=== PATIENT | male | born 1960 | race Caucasian/White ===

== ENCOUNTER 2016-12-27 20:39 | Emergency (ER) | payer OTHER ==
[~2016-12-27] VITALS: Ht 182.9 cm; Wt 75.7 kg
[2016-12-27 20:41] VITALS: TEMP 36.5; Ht 182.9 cm; Wt 75.7 kg
[2016-12-27] MEDS ORDERED: ALBUTEROL HFA 8 GM INHALER INH ONE (21:15)
--- NOTE | 2016-12-27 21:23 | EMERGENCY ROOM VISIT NOTE ---
History Report prepared by Armen: Brina Hurley Under the Supervision of: Dr. Lance Lozano M.D. First contact with patient: 21:03 Chief Complaint: COUGH Stated Complaint: COUGH, WHEEZING Nursing Triage Summary: Per patient and , for past couple months patient has had a cough. When he has coughing spells it nelson throughout his chest and throat. History of Present Illness The patient is a 56 year old male who presents to the Emergency Room with complaints of a persistent cough starting about 3 months ago. He reports a small amount of mucous production. He has worsening cough with exposure to cold air. He has a mid-chest pain with coughing. He also complains of wheezing. He currently denies any sore throat, nausea, vomiting, abdominal pain, or any other complaints. He was evaluated by his PCP and given a cough medication without relief. He denies any history of smoking tobacco. He denies history of inhaler use, lung disease, and cardiac disease. He has a history of acid reflux. Source of History: patient Onset: about 3 months ago Position: other (global) Quality: other (cough) Timing: other (persistent) Modifying Factors (Worsening): other (with exposure to cold air) Associated Symptoms: + chest pain, No abdominal pain, No nausea, No sorethroat, No vomiting Review of Systems See HPI for pertinent positives & negatives. A total of 10 systems reviewed and were otherwise negative. Past Medical & Surgical Medical Problems: (1) Acid reflux (2) Hard of hearing Family History Patient reports no known family medical history. Social History Smoking Status: Never Smoker Marital Status: Housing Status: lives with family Current/Historical Medications Scheduled Albuterol Hfa (Ventolin Hfa), 3 PUFFS INH Q6H Allopurinol (Zyloprim), 300 MG PO DAILY Atorvastatin (Atorvastatin Calcium), 20 MG PO DAILY Lisinopril (Zestril), 10 MG PO DAILY Pantoprazole (Protonix), 20 MG PO DAILY Ranitidine (Zantac), 150 MG PO BID Allergies Coded Allergies: Cephalexin (Unverified Allergy, Unknown, rash, 12/27/16) Sulfamethoxazole w/Trimethoprim (Unverified Allergy, Unknown, rash, ) Physical Exam Vital Signs Date Time Temp Pulse Resp B/P Pulse Ox O2 Delivery O2 Flow Rate FiO2 12/27/16 22:12 84 22 111/69 96 Room Air 12/27/16 20:45 94 Room Air 12/27/16 20:41 36.5 88 20 118/71 94 Room Air Physical Exam GENERAL: Patient is in no acute distress. HEENT: No acute trauma, normocephalic atraumatic, mucous membranes moist, no nasal congestion, no scleral icterus. Mild throat erythema, no exudate. NECK: No stridor, no adenopathy, no meningismus, trachea is midline. LUNGS: Clear to auscultation bilaterally, no wheeze, no rhonchi, breath sounds equal. HEART: Without murmurs gallops or rubs, regular rate and rhythm. ABDOMEN: Soft, nontender, bowel sounds positive, no hernias, no peritonitis. EXTREMITIES: No cyanosis or edema, full range of motion of all the joints without pain or difficulty, no signs for acute trauma. NEUROLOGIC: Oriented x 3, no acute motor or sensory deficits, no focal weakness. SKIN: No rash, no jaundice, no diaphoresis. Medical Decision & Procedures ER Provider Diagnostic Interpretation: X-ray results as stated below per interpretation by me and the radiologist: CHEST 2 VIEWS ROUTINE HISTORY: cough COMPARISON: None. FINDINGS: The lungs are clear. Cardiac silhouette is normal in size. No pleural effusions. No pneumothorax. Small nipple shadow overlying the left lung base. Old, healed right sixth rib fracture. IMPRESSION: No acute process. Electronically signed by: Jono Maldonado M.D. 12/27/2016 10:04 PM Dictated Date/Time: 12/27/2016 10:02 PM Medications Administered Medications (Trade) Dose Ordered Sig/Lemuel Route Start Time Stop Time Status Last Admin Dose Admin Albuterol (Ventolin Hfa Inhaler) 3 puffs NOW ONCE INH 12/27/16 21:15 12/27/16 21:16 DC 12/27/16 21:15 3 PUFFS Ranitidine HCl (zANTac TAB) 150 mg NOW STAT PO 12/27/16 22:12 12/27/16 22:13 DC 12/27/16 22:19 150 MG Pantoprazole Sodium (Protonix Tab) 40 mg NOW STAT PO 12/27/16 22:12 12/27/16 22:13 DC 12/27/16 22:19 40 MG ED Course 2102: The patient was evaluated in room A11B. A complete history and physical exam was performed. 2114: Albuterol 3 puffs INH 2211: Protonix Tab 40 mg PO, Ranitidine HCl 150 mg PO 2215: Reevaluated the patient. Discussed results and discharge instructions: He verbalized understanding and agreement. The patient is ready for discharge. Medical Decision Differential diagnosis includes but is not limited to bronchitis/pneumonia, CHF , reflux, bronchospasm. The patient presents with a cough for 3 months. His lungs sounded clear. He was not febrile or toxic. He was not hypoxic. He did have some throat erythema on exam, no evidence for tonsillitis. Chest film did not show pneumonia, mediastinal widening or CHF. The patient was given albuterol via MDI. He was given oral Zantac and oral Protonix. The patient is being discharged on albuterol for possible bronchospasm. He will use Zantac and Protonix in case his symptoms are reflux related. If things are worsening, the patient can return for reassessment. He was told to follow with his doctors office as he may need a referral to pulmonology if his symptoms are not improving. Impression Primary Impression: Cough Scribe Attestation The scribe's documentation has been prepared under my direction and personally reviewed by me in its entirety. I confirm that the note above accurately reflects all work, treatment, procedures, and medical decision making performed by me. Departure Information Dispostion Home / Self-Care Prescriptions Pantoprazole (Protonix) 20 Mg Tab 20 MG PO DAILY, #30 TAB 3 Refills Prov: Lance Lozano M.D. 12/27/16 Ranitidine (Zantac) 150 Mg Tab 150 MG PO BID for 14 Days, #28 TAB Prov: Lance Lozano M.D. 12/27/16 Albuterol Hfa (VENTOLIN HFA) 200 Puffs/43345 Mcg Aers 3 PUFFS INH Q6H, #1 INHALER 2 Refills Prov: Lance Lozano M.D. 12/27/16 Referrals Js Sarabia M.D. (PCP) Forms HOME CARE DOCUMENTATION FORM, IMPORTANT VISIT INFORMATION Patient Instructions My [facility] Additional Instructions albuterol 3 puffs every 4-6 hours zantac 2x per day for 2 weeks protonix daily for 1 month see akbar salcedo for a recheck return if worsening chest film today was normal
[2016-12-27] MEDS ORDERED: LISI-461 PO (22:03)
[2016-12-27] MEDS ORDERED: LPT/20 PO (22:03)
[2016-12-27] MEDS ORDERED: ALLO300T2 PO (22:03)
--- NOTE | 2016-12-27 22:06 | DIAGNOSTIC IMAGING REPORT ---
CHEST 2 VIEWS ROUTINE HISTORY: cough COMPARISON: None. FINDINGS: The lungs are clear. Cardiac silhouette is normal in size. No pleural effusions. No pneumothorax. Small nipple shadow overlying the left lung base. Old, healed right sixth rib fracture. IMPRESSION: No acute process. Electronically signed by: Jono Maldonado M.D. 12/27/2016 10:04 PM Dictated Date/Time: 12/27/2016 10:02 PM
[2016-12-27 22:12] VITALS: BP 111/69; PULSE 84; O2SAT 96
[2016-12-27] MEDS ORDERED: RANITIDINE HCL 150 MG TAB PO STA (22:12)
[2016-12-27] MEDS ORDERED: PANTOprazole SOD 40 MG TAB PO STA (22:12)
[2016-12-27] MEDS ORDERED: VNTHFA/IN INH (22:15)
[2016-12-27] MEDS ORDERED: ZNTT/150 PO (22:15)
[2016-12-27] MEDS ORDERED: PRT/20 PO (22:15)
== END 2016-12-27 22:29 | disposition home or self-care (01) ==
LOC: C.EDB 20:40 → C.EDA 22:29
DX: R05 Cough (principal); K21.9 Gastro-esophageal reflux disease without esophagitis; H91.90 Unspecified hearing loss, unspecified ear; Z88.2 Allergy status to sulfonamides

== ENCOUNTER 2020-07-09 18:24 | Observation (INO) ==
[2020-07-09] MEDS ORDERED: SODIUM CHLORIDE 0.9% 1000ML 1,000 ML IV ONE ×2 (19:01→19:03)
[2020-07-09] MEDS ORDERED: PIPERACILLIN/TAZOBACTAM 4.5 GM/120 ML BAG IV ONE (19:13)
[2020-07-09] MEDS ORDERED: SODIUM CHLORIDE 0.9% 1000ML 500 ML IV ONE (19:13)
[2020-07-09] MEDS ORDERED: ACETAMINOPHEN 1,000 MG/100 ML VIAL IV STA (19:13)
[2020-07-09] MEDS ORDERED: PIPERACILL/TAZOBAC CONSULT ACTIVE PRN (19:13)
[2020-07-09] MEDS ORDERED: DAPTOMYCIN CONSULT ACTIVE PRN (19:13)
[2020-07-09] MEDS ORDERED: SODIUM CHLORIDE 0.9% 1000ML 250 ML IV ONE (19:13)
[2020-07-09] MEDS ORDERED: DAPTOmycin 500 MG in SYRINGE 0 ML IV ONE (19:13)
[2020-07-09 19:50] LABS: Basophils # (auto) 0.01 K/uL (0-0.2); Basophils % (auto) 0.1 %; Eosinophils % (auto) 0.9 %; Hematocrit (blood only) 38.1 % (42-52); Hemoglobin 13.2 g/dL (14.0-18.0); Immature Granulocytes # (auto) 0.03 K/uL (0.00-0.02); Immature Granulocytes % (auto) 0.3 %; Lymphocytes # (auto) 2.01 K/uL (1.2-3.4); Mean Corpuscular Hemoglobin 31.4 pg (25-34); Mean Corpuscular Hgb Conc 34.6 g/dL (32-36); Mean Corpuscular Volume 90.5 fL (80-100); Mean Platelet Volume 10.1 fL (7.4-10.4); Monocytes # (auto) 0.92 K/uL (0.11-0.59); Monocytes % (auto) 8.7 %; Platelet Count 375 K/uL (130-400); RDW Coefficient of Variation 12.2 % (11.5-14.5); RDW Standard Deviation 40.4 fL (36.4-46.3); Red Blood Count 4.21 M/uL (4.7-6.1); White Blood Count 10.57 K/uL (4.8-10.8)
[2020-07-09 19:59] LABS: INR 1.1 (0.9-1.1); Partial Thromboplastin Ratio 0.9; Partial Thromboplastin Time 25.6 Seconds (21.0-31.0); Prothrombin Time 11.4 Seconds (9.0-12.0)
[2020-07-09 20:07] LABS: Alanine Aminotransferase 27 U/L (12-78); Albumin Level 3.2 gm/dl (3.4-5.0); Aspartate Aminotransferase 14 U/L (15-37); BUN Creatinine Ratio 13.6 (10-20); Blood Urea Nitrogen 14 mg/dl (7-18); Calcium 9.7 mg/dl (8.5-10.1); Carbon Dioxide 27 mmol/L (21-32); Chloride 100 mmol/L (98-107); Creatinine Clr Calc Pharmacy 83.4 ml/min; Est GFR (African American) 89.2; Glucose 110 mg/dl (70-99); Magnesium 2.1 mg/dl (1.8-2.4); Potassium 3.8 mmol/L (3.5-5.1); Sodium 135 mmol/L (136-145)
[2020-07-09 20:11] LABS: Albumin Globulin Ratio 0.6 (0.9-2); Alkaline Phosphatase 68 U/L (45-117); Bilirubin,Total 0.9 mg/dl (0.2-1); C Reactive Protein 8.04 mg/dl (0-0.29); Creatine Kinase 45 U/L (39-308); Creatine Kinase MB < 1.0 ng/ml (0.5-3.6); Ferritin 1155.3 ng/ml (8-388); Total Protein 8.2 gm/dl (6.4-8.2); Troponin I < 0.015 ng/ml (0-0.045)
--- NOTE | 2020-07-09 20:57 | XRay Report ---
XR chest 1V portable HISTORY: SEPSIS COMPARISON: Chest 12/27/2016. FINDINGS: The lungs are clear. Cardiac silhouette is normal in size. No pleural effusions. No pneumot horax. IMPRESSION: No acute process. ACT 112: Negative or not required by law. Electronically signed by: Jono Maldonado M.D. 07/09/2020 8:56 PM
--- NOTE | 2020-07-09 21:55 | History & Physical Report ---
Date of Service July 09, 2020 Assessment & Plan (1) Cellulitis of both lower extremities: Continue daptomycin and Zosyn IV begun in the ED. Present on Admission?: Yes (2) Gouty arthritis of both ankles: Hold allopurinol during acute flare. Colchicine 0.6 mg p.o. twice daily Methylprednisolone 40 mg IV every 12 hours x2 doses, then convert to prednisone, due to severity of process. Present on Admission?: Yes (3) Hypertension: Hold losartan. Present on Admission?: Yes (4) Hyperlipidemia: Continue rosuvastatin. Present on Admission?: Yes (5) Gout: Hold allopurinol during acute flare Present on Admission?: Yes History of Present Illness Chief Complaint: The patient presented to the emergency department with complaint of bilateral foot, ankle and lower leg discomfort worsening over the past week Primary Care Provider: Js Sarabia The patient is a 60-year-old male with a past medical history including gout, hypertension and hyperlipidemia, who presents with the symptoms as noted above. He denies any recent travels or sick exposures, including COVID. He denies any recent trauma. He denies any recent gout flareups. He does report eating shrimp last evening, and is not restrictive related to protein intake including meats. Allergies Allergy/AdvReac Type Severity Reaction Status Date / Time Bactrim Allergy Unknown rash Unverified 12/27/16 22:01 cephalexin Allergy Unknown rash Unverified 07/09/20 21:11 sulfamethoxazole Allergy Unknown rash Unverified 07/09/20 21:11 trimethoprim Allergy Unknown rash Unverified 07/09/20 21:11 Home Medications Home Medications Medication Instructions Recorded Confirmed Type allopurinol 300 mg PO DAILY 07/09/20 07/09/20 History cholecalciferol (vitamin D3) 25 mcg PO DAILY 07/09/20 07/09/20 History [Vitamin D3] losartan 100 mg PO DAILY 07/09/20 07/09/20 History rosuvastatin 10 mg PO DAILY 07/09/20 07/09/20 History Past Med/Surg History Medical History (Updated 07/10/20 @ 02:52 by Thanh Weiner MD) Gout Hyperlipidemia Hypertension Social History Smoking Status: Never smoker Cigarettes Per Day: former chews; Do You Dip or Chew Tobacco: No; Hx Alcohol Use: Yes Alcohol type: beer Hx Substance Use: No Preferred Language: [place] Communication Ability: Effective Lead Designer Required: No Beliefs That Will Affect Care: None Current Living Situation: Spouse Feels Safe at Home: Yes Assistive Devices: Hearing Aid - Bilateral Review of Systems Review of Systems: The patient denies chest pain, palpitations, shortness of breath, dyspnea on exertion, cough, sore throat, fevers, chills, sweats, nausea, vomiting, diarrhea , constipation, abdominal pain, pelvic pain, blood in urine or stool, dysuria, urinary frequency or urgency, lightheadedness, dizziness, headache, memory loss, loss of consciousness, abnormal bruising or bleeding, focal or generalized weakness, numbness or tingling in arms, generalized arthralgias or myalgias, back or neck pain, or night sweats. The review of systems is otherwise negative other than for that already noted above, and at least 10 systems have been reviewed. Physical Exam Physical Exam: The patient is awake, alert and oriented 3, well developed and well nourished, normocephalic and atraumatic, lying in bed and in no acute distress. HEENT--PERRL, EOMI, mucous membranes and oropharynx dry. Neck--supple. No JVD. No bruits. Thyroid normal, trachea midline, no adenopathy. Heart--normal S1 and S2. No murmurs, rubs or gallops. Lungs--clear bilaterally, no respiratory distress, no accessory muscle use. Abdomen--normal bowel sounds and soft. Nontender. Nondistended, no hernias or masses, no organomegaly. Extremities/Dermatologic--bilateral edema and bone swelling of the foot and ankle, left greater than right. Mild erythema and warmth left greater than right Neurologic--cranial nerves II through XII grossly intact. Rheumatologic--normal range of motion except for feet and ankles bilaterally Psychiatric--normal affect. Results & Data Results & Data ([facility]) Vital Signs (Past 12 Hours) Vital Signs Temp Pulse Pulse Resp BP BP Pulse Ox 07/09/20 20:38 98.8 F 69 27 H 116/67 98 07/09/20 19:41 75 11 L 132/74 99 07/09/20 18:50 100.4 F H 94 H 20 99/66 L 98 Laboratory Results Laboratory Results WBC 10.57 K/uL (4.8-10.8) 07/09/20 19:33 RBC 4.21 M/uL (4.7-6.1) L 07/09/20 19:33 Hgb 13.2 g/dL (14.0-18.0) L 07/09/20 19: Hct 38.1 % (42-52) L 07/09/20 19:33 MCV 90.5 fL (80-100) 07/09/20 19: MCH 31.4 pg (25-34) 07/09/20 19: MCHC 34.6 g/dL (32-36) 07/09/20 19:33 RDW Std Deviation 40.4 fL (36.4-46.3) 07/09/20: RDW Coeff of Yi 12.2 % (11.5-14.5) 07/09/20: Plt Count 375 K/uL (130-400) 07/09/20: MPV 10.1 fL (7.4-10.4) 07/09/20 19: Immature Gran % (Auto) 0.3 % 07/09/20 19:33 Neut % (Auto) 71.0 % 07/09/20 19:33 Lymph % (Auto) 19.0 % 07/09/20 19:33 [place] % (Auto) 8.7 % 07/09/20 19: Eos % (Auto) 0.9 % 07/09/20: Baso % (Auto) 0.1 % 07/09/20 19: Neut # (Auto) 7.50 K/uL (1.4-6.5) H 07/09/20 19: Lymph # (Auto) 2.01 K/uL (1.2-3.4) 07/09/20 19:33 [place] # (Auto) 0.92 K/uL (0.11-0.59) H 07/09/20 19: Eos # (Auto) 0.10 K/uL (0-0.5) 07/09/20 19: Baso # (Auto) 0.01 K/uL (0-0.2) 07/09/20 19: Immature Gran # (Auto) 0.03 K/uL (0.00-0.02) H 07/09/20 19:33 ESR 56 mm/hr (0-14) H 07/09/20 19:33 PT 11.4 Seconds (9.0-12.0) 07/09/20 19:33 INR 1.1 (0.9-1.1) 07/09/20 19:33 APTT 25.6 Seconds (21.0-31.0) 07/09/20 19:33 PTT Ratio 0.9 07/09/20 19:33 Sodium 135 mmol/L (136-145) L 07/09/20 19:33 Potassium 3.8 mmol/L (3.5-5.1) 07/09/20 19:33 Chloride 100 mmol/L (98-107) 07/09/20 19:33 Carbon Dioxide 27 mmol/L (21-32) 07/09/20 19:33 Anion Gap 7.0 (3-11) 07/09/20 19:33 BUN 14 mg/dl (7-18) 07/09/20 19:33 Creatinine 1.06 mg/dl (0.6-1.4) 07/09/20 19:33 Est Cr Clr Drug Dosing 83.4 ml/min 07/09/20 19:33 Est GFR ( Amer) 89.2 07/09/20 19:33 Est GFR (Non-Af Amer) 77.0 07/09/20 19:33 BUN/Creatinine Ratio 13.6 (10-20) 07/09/20 19:33 Glucose 110 mg/dl (70-99) H 07/09/20 19:33 Lactate 1.6 mmol/L (0.4-2.0) 07/09/20 19:33 Uric Acid 2.1 mg/dl (2.6-7.2) L 07/09/20 19:33 Calcium 9.7 mg/dl (8.5-10.1) 07/09/20 19:33 Magnesium 2.1 mg/dl (1.8-2.4) 07/09/20 19:33 Ferritin 1155.3 ng/ml (8-388) H 07/09/20 19:33 Total Bilirubin 0.9 mg/dl (0.2-1) 07/09/20 19:33 AST 14 U/L (15-37) L 07/09/20 19:33 ALT 27 U/L (12-78) 07/09/20 19:33 Alkaline Phosphatase 68 U/L (45-117) 07/09/20 19:33 Lactate Dehydrogenase 190 U/L (87-241) 07/09/20 19:33 Total Creatine Kinase 45 U/L (39-308) 07/09/20 19:33 CK-MB (CK-2) < 1.0 ng/ml (0.5-3.6) 07/09/20 19:33 CK/CKMB % Calc TNP 07/09/20 19: Troponin I < 0.015 ng/ml (0-0.045) 07/09/20 19:33 C-Reactive Protein 8.04 mg/dl (0-0.29) H 07/09/20 19:33 Total Protein 8.2 gm/dl (6.4-8.2) 07/09/20 19: Albumin 3.2 gm/dl (3.4-5.0) L 07/09/20 19:33 Globulin 5.0 gm/dl (2.5-4.0) H 07/09/20 19: Albumin/Globulin Ratio 0.6 (0.9-2) L 07/09/20 19:33 Procalcitonin 0.07 ng/ml (0-0.5) 07/09/20 19:33 Urine Color Yellow 07/09/20 21:33 Urine Appearance Clear (Clear) 07/09/20 21:33 Urine pH 6.0 (4.5-7.5) 07/09/20 21:33 Ur Specific [place] 1.014 (1.000-1.030) 07/09/20 21:33 Urine Protein Negative (Negative) 07/09/20 21:33 Urine Glucose (UA) Negative (Negative) 07/09/20 21:33 Urine Ketones Negative (Negative) 07/09/20 21:33 Urine Blood Negative (Negative) 07/09/20 21: Urine Nitrite Negative (Negative) 07/09/20 21: Urine Bilirubin Negative (Negative) 07/09/20 21:33 Urine Urobilinogen Negative (Negative) 07/09/20 21:33 Ur Leukocyte Esterase Negative (Negative) 07/09/20 21:33 COVID-19 Eval Order Covid19 Done at [facility] 07/09/20 19:10 COVID-19 PCR NEGATIVE (Negative) 07/09/20 19:10 Diagnostic Findings [place], [place] [phone] XRay Report Patient: IVANA PUGHAdmit Date: 07/09/20 MR#: [id number]: [address] Acct ID:[id number]: Date: 2City Zip: [place] [address] Age: 60Location: ED Sex: MRoom/Bed: Att Phy:Diagnosis: ANKLE PAIN Erika Phy: Js Sarabia M.D.Service Date: 07/09/20 Fam Phy:Interpreting Phy: Jono Maldonado MD Admit Phy: Ordering Phy: Akash Gasca MD cc: ~ XR chest 1V portable HISTORY: SEPSIS COMPARISON: Chest 12/27/2016. FINDINGS: The lungs are clear. Cardiac silhouette is normal in size. No pleural effusions. No pneumothorax. IMPRESSION: No acute process. ACT 112: Negative or not required by law. Electronically signed by: Jono Maldonado M.D. 07/09/2020 8:56 PM Dictated: 07/09/202054 Transcribed: 07/09/202054 Code Status & VTE Plan Code Status Full code VTE Prophylaxis Plan VTE Prophylaxis will be ordered: Yes PG Care Time/CCT Total # of Minutes Spent Total Time Spent with Patient: Total time spent is greater than 50% in coordination of care (as documented) at patient's floor/unit and/or counseling patient: Coding Level of Care Code 86921 OBS Care - Level 3 Diagnoses Cellulitis of both lower extremities L03.115; L03.116 Gouty arthritis of both ankles M10.9 Hypertension I10 Hyperlipidemia E78.5 Gout M10.9
[2020-07-09 21:57] LABS: Appearance Urine Clear (Clear); Bilirubin Urine Negative (Negative); Blood Urine Negative (Negative); Color Urine Yellow; Glucose Urine UA Negative (Negative); Ketones Urine Negative (Negative); Leukocyte Esterase Urine Negative (Negative); Nitrite Urine Negative (Negative); Protein Urine Negative (Negative); Specific Gravity Urine 1.014 (1.000-1.030); Urobilinogen Urine Negative (Negative)
[2020-07-10] MEDS ORDERED: DAPTOMYCIN CONSULT ACTIVE PRN (00:04)
[2020-07-10] MEDS ORDERED: ALUMINUM/MAGNESIUM SUSP 30 ML UDC PO PRN (00:04)
[2020-07-10] MEDS ORDERED: MAGNESIUM HYDROXIDE SUSP 30 ML UDC PO PRN (00:04)
[2020-07-10] MEDS ORDERED: ONDANSETRON INJ 2 MG/ML 2 ML VIAL IV PRN (00:04)
[2020-07-10] MEDS ORDERED: ACETAMINOPHEN 325 MG TAB PO PRN (00:04)
[2020-07-10 00:47] LABS: Uric Acid 2.1 mg/dl (2.6-7.2)
[2020-07-10] MEDS: NSS + 20MEQ KCL 20 MEQ/1,000 ML BAG IV SCH ×3 (00:59→20:30)
[2020-07-10] MEDS: PIPERACILLIN/TAZOBACTAM 3.375 GM in DEXTROSE 5% 100 ML IV SCH ×3 (01:08→16:56)
[2020-07-10] MEDS: LEVOFLOXACIN/D5W 500 MG/100 ML BAG IV SCH (01:10)
[2020-07-10] MEDS ORDERED: COLCHICINE 0.6 MG TAB PO ONE (02:53)
--- NOTE | 2020-07-10 03:32 | Emergency Department Note ---
History of Present Illness General Chief complaint: Illness Stated complaint: ANKLE PAIN Time Seen by Provider: 07/09/20 19:00 Source: patient, RN notes reviewed and old records reviewed Mode of arrival: ambulatory Limitations: no limitations History of Present Illness Provider complaint: ankle pain Onset (ago): week(s) 1 Location: lower extremity, left and right Radiation: non-radiation Severity: moderate Pain Consistency: + intermittent Maximum Pain Intensity: 6 Current Pain Intensity: 6 Quality: + aching Relieved By: + immobilization Exacerbated By: + movement Associated symptoms: + cough and + fever/chills; no chest pain, no headaches, no nausea/vomiting and no shortness of breath Treatments prior to arrival: none This is a 60-year-old male who presents emergency department complaining of ankle pain. The patient has cellulitis. He reports he has been having pain bilaterally in his feet since at least Monday. He arrives to the emergency department febrile tachycardic. He reports he is already had [facility] test which was negative. He has not taken anything for his fever. He describes the pain as a burning sensation. He reports movement makes the pain worse however immobilization makes the pain better. Home Medications Home Medications Medication Instructions Recorded Confirmed Type allopurinol 300 mg PO DAILY 07/09/20 07/09/20 History cholecalciferol (vitamin D3) 25 mcg PO DAILY 07/09/20 07/09/20 History [Vitamin D3] losartan 100 mg PO DAILY 07/09/20 07/09/20 History rosuvastatin 10 mg PO DAILY 07/09/20 07/09/20 History Allergies Allergy/AdvReac Type Severity Reaction Status Date / Time Bactrim Allergy Unknown rash Unverified 12/27/16 22:01 cephalexin Allergy Unknown rash Unverified 07/09/20 21:11 sulfamethoxazole Allergy Unknown rash Unverified 07/09/20 21:11 trimethoprim Allergy Unknown rash Unverified 07/09/20 21:11 Past Med/Surg History Medical History Gout Hyperlipidemia Hypertension Social History Smoking Status: Never smoker Cigarettes Per Day: former chews; Do You Dip or Chew Tobacco: No; Hx Alcohol Use: Yes Alcohol type: beer Hx Substance Use: No Preferred Language: Cambodian Communication Ability: Effective Drive [employer] Rep[employer]r Required: No Beliefs That Will Affect Care: None Current Living Situation: Spouse Feels Safe at Home: Yes Assistive Devices: Hearing Aid - Bilateral Review of Systems A total of 10 systems reviewed and were otherwise negative Physical Exam Vital Signs Vital Signs - 24 hr 07/09/20 18:50 07/09/20 19:41 07/09/20 20:38 Temperature 38.0 C H 37.1 C Temperature Source Oral Oral Pulse Rate 94 H 75 Pulse Rate [Left Finger] 69 Pulse Rate from SpO2 Sensor 75 Respiratory Rate 20 11 L 27 H Respiratory Effort / Characteristics Non-Labored Spontaneous Respiratory Depth Normal Respiratory Pattern Regular Blood Pressure 99/66 L 132/74 Blood Pressure [Right Arm] 116/67 Blood Pressure Mean 77 95 Blood Pressure Mean [Right Arm] 83 Pulse Oximetry 98 99 98 Oxygen Delivery Method Room Air Sepsis Recent Fever Within 48 Hours No Sepsis New/Unexplained Change in Mental Status N/A Sepsis Action Taken by Nursing No Action Required VITAL SIGNS - Vital signs and nursing notes were reviewed. GENERAL - 60-year-old male appearing stated age who is in no acute distress. Communicates well with provider and answers questions appropriately. SKIN - Without rashes. HEAD - NC/AT. EYES - PERRL with EOMI bilaterally. Sclera anicteric. Palpebral conjunctiva pink and moist with no injection noted. EARS - No deformities of external structures noted on gross examination bilaterally. No pain elicited with palpation of the tragus bilaterally. External auditory canals without discharge or otorrhea. Tympanic membranes pearly oconnor without retraction or bulging. No fluid or purulent material visualized behind the TM. Handle of malleus, umbo, cone of light, pars tensa/flaccid all easily visualized. NOSE - Midline and without cyanosis. No epistaxis or purulent drainage noted. Septum midline without deviation or septal hematoma noted. MOUTH/OROPHARYNX - Without perioral cyanosis. Buccal mucosa pink and moist and without leukoplakia. Tongue midline with equal elevation of palate bilaterally. No tonsillar hypertrophy, erythema, or exudates noted. dentition noted. NECK - Neck with FROM. Supple to palpation. lymphadenopathy noted. No nuchal rigidity. LUNGS - Chest wall symmetric without accessory muscle use, intercostals retractions, or central cyanosis. Normal vesicular breath sounds CTA B/L. No wheezes, rales, or rhonchi appreciated. CARDIAC - RRR with S1/S2. No murmur, rubs, or gallops appreciated. ABDOMEN - Abdominal contour without pulsations or visible masses. BS normoactive all four quadrants. No tenderness, palpable masses, hepatosplenomegaly, or ascites noted. EXTREMITIES - No clubbing or peripheral cyanosis. No pretibial edema present. +3/5 radial, posterior tibial, and dorsalis pedis pulses palpated throughout. +5/5 strength noted in UE/LE bilaterally. NEUROLOGIC - Cranial nerves II through XII grossly intact. Sensory intact to light touch throughout. Patellar reflexes +2/4. PSYCH - A&Ox3 and cooperates fully with examiner. Pt is very pleasant and interacts well with examiner. Course Administered Medications Potassium Chloride/Sodium Chloride (Normal Saline W/20 Meq Kcl) 20 meq in 1,000 mls @ 100 mls/hr IV .Q10H [facility] Stop: 08/09/20 00:03 Last Admin: 07/10/20 00:59 Dose: 100 mls/hr Documented by: [id number] Levofloxacin/Dextrose (Levaquin/D5w) 500 mg in 100 mls @ 100 mls/hr IV Q24H [facility] Stop: 07/17/20 00:59 Last Infusion: 07/10/20 02:14 Dose: 0 mls/hr Documented by: [id number] Admin: 07/10/20 01:10 Dose: 100 mls/hr Documented by: [id number] Piperacillin Sod/Tazobactam (Sod 3.375 gm/ Dextrose) 115 mls @ 28.75 mls/hr IV Q8H [facility]; Protocol Stop: 07/17/20 00:59 Last Admin: 07/10/20 01:08 Dose: 28.8 mls/hr Documented by: [id number] Discontinued Medications Sodium Chloride (Nss 1000ml) 1,000 mls @ 999 mls/hr IV .Q1H1M ONE Stop: 07/09/20 20:01 Last Infusion: 07/09/20 21:00 Dose: 0 mls/hr Documented by: [id number] Admin: 07/09/20 19:43 Dose: 999 mls/hr Documented by: [id number] Sodium Chloride (Nss 1000ml) 1,000 mls @ 999 mls/hr IV .Q1H1M ONE Stop: 07/09/20 20:03 Last Infusion: 07/09/20 21:00 Dose: 0 mls/hr Documented by: [id number] Admin: 07/09/20 19:43 Dose: 999 mls/hr Documented by: [id number] Sodium Chloride (Nss 1000ml) 250 mls @ 999 mls/hr IV .Q16M ONE Stop: 07/09/20 19:28 Last Infusion: 07/09/20 21:00 Dose: 0 mls/hr Documented by: [id number] Admin: 07/09/20 20:36 Dose: 999 mls/hr Documented by: [id number] Sodium Chloride (Nss 1000ml) 500 mls @ 999 mls/hr IV .Q31M ONE Stop: 07/09/20 19:43 Last Infusion: 07/09/20 20:30 Dose: 0 mls/hr Documented by: [id number] Admin: 07/09/20 19:56 Dose: 999 mls/hr Documented by: [id number] Piperacillin Sod/Tazobactam Sod (Zosyn) 4.5 gm in 120 mls @ 240 mls/hr IV NOW ONE Stop: 07/09/20 19:42 Last Infusion: 07/09/20 20:15 Dose: 0 mls/hr Documented by: [id number] Admin: 07/09/20 19:43 Dose: 240 mls/hr Documented by: [id number] Daptomycin 500 mg/ Syringe 10 mls @ 5 mls/min IV NOW ONE; Protocol Stop: 07/09/20 19:14 Last Admin: 07/09/20 20:36 Dose: 5 mls/min Documented by: [id number] Acetaminophen (Ofirmev) 1,000 mg in 100 mls @ 400 mls/hr IV NOW STA Stop: 07/09/20 19:27 Last Infusion: 07/09/20 20:00 Dose: 0 mls/hr Documented by: [id number] Admin: 07/09/20 19:43 Dose: 400 mls/hr Documented by: [id number] Critical Care Time I have personally spent greater than 30 minutes of critical care time in the direct management of this patient. This includes bedside care, interpretation of diagnostic studies, and testing, discussion with consultants, patient, and family members, and other required patient management activities. This 30 minutes is in excess of all separately billable procedures. Medical Decision Making Differential Diagnosis Viral syndrome, otitis, pharyngitis, pneumonia, influenza, meningitis, urinary tract infection, sepsis, bacteremia, as well as other pathologies. Medical Records Attestation: I reviewed the patient's medical records. Home Medications Current Medication List: was personally reviewed by me Laboratory Data Attestation: I reviewed the patient's lab results. Result diagrams: 07/09/20 19:33 07/09/20 19:33 Lab Results 07/09/20 07/09/20 07/09/20 Range/Units 19:10 19:10 19:33 WBC 10.57 (4.8-10.8) K/uL RBC 4.21 L (4.7-6.1) M/uL Hgb 13.2 L (14.0-18.0) g/dL Hct 38.1 L (42-52) % MCV 90.5 (80-100) fL MCH 31.4 (25-34) pg MCHC 34.6 (32-36) g/dL RDW Std Deviation 40.4 (36.4-46.3) fL RDW Coeff of Yi 12.2 (11.5-14.5) % Plt Count 375 (130-400) K/uL MPV 10.1 (7.4-10.4) fL Immature Gran % (Auto) 0.3 % Neut % (Auto) 71.0 % Lymph % (Auto) 19.0 % [place] % (Auto) 8.7 % Eos % (Auto) 0.9 % Baso % (Auto) 0.1 % Neut # (Auto) 7.50 H (1.4-6.5) K/uL Lymph # (Auto) 2.01 (1.2-3.4) K/uL [place] # (Auto) 0.92 H (0.11-0.59) K/uL Eos # (Auto) 0.10 (0-0.5) K/uL Baso # (Auto) 0.01 (0-0.2) K/uL Immature Gran # (Auto) 0.03 H (0.00-0.02) K/uL ESR (0-14) mm/hr PT (9.0-12.0) Seconds INR (0.9-1.1) APTT (21.0-31.0) Seconds PTT Ratio Sodium (136-145) mmol/L Potassium (3.5-5.1) mmol/L Chloride (98-107) mmol/L Carbon Dioxide (21-32) mmol/L Anion Gap (3-11) BUN (7-18) mg/dl Creatinine (0.6-1.4) mg/dl Est Cr Clr Drug Dosing ml/min Est GFR ( Amer) Est GFR (Non-Af Amer) BUN/Creatinine Ratio (10-20) Glucose (70-99) mg/dl Lactate (0.4-2.0) mmol/L Uric Acid (2.6-7.2) mg/dl Calcium (8.5-10.1) mg/dl Magnesium (1.8-2.4) mg/dl Ferritin (8-388) ng/ml Total Bilirubin (0.2-1) mg/dl AST (15-37) U/L ALT (12-78) U/L Alkaline Phosphatase (45-117) U/L Lactate Dehydrogenase (87-241) U/L Total Creatine Kinase (39-308) U/L CK-MB (CK-2) (0.5-3.6) ng/ml CK/CKMB % Calc Troponin I (0-0.045) ng/ml C-Reactive Protein (0-0.29) mg/dl Total Protein (6.4-8.2) gm/dl Albumin (3.4-5.0) gm/dl Globulin (2.5-4.0) gm/dl Albumin/Globulin Ratio (0.9-2) Procalcitonin (0-0.5) ng/ml Urine Color Urine Appearance (Clear) Urine pH (4.5-7.5) Ur Specific [place] (1.000-1.030) Urine Protein (Negative) Urine Glucose (UA) (Negative) Urine Ketones (Negative) Urine Blood (Negative) Urine Nitrite (Negative) Urine Bilirubin (Negative) Urine Urobilinogen (Negative) Ur Leukocyte Esterase (Negative) COVID-19 Eval Order Covid19 Done at [facility] COVID-19 PCR NEGATIVE (Negative) 07/09/20 07/09/20 07/09/20 Range/Units 19:33 19:33 19:33 WBC (4.8-10.8) K/uL RBC (4.7-6.1) M/uL Hgb (14.0-18.0) g/dL Hct (42-52) % MCV (80-100) fL MCH (25-34) pg MCHC (32-36) g/dL RDW Std Deviation (36.4-46.3) fL RDW Coeff of Yi (11.5-14.5) % Plt Count (130-400) K/uL MPV (7.4-10.4) fL Immature Gran % (Auto) % Neut % (Auto) % Lymph % (Auto) % [place] % (Auto) % Eos % (Auto) % Baso % (Auto) % Neut # (Auto) (1.4-6.5) K/uL Lymph # (Auto) (1.2-3.4) K/uL [place] # (Auto) (0.11-0.59) K/uL Eos # (Auto) (0-0.5) K/uL Baso # (Auto) (0-0.2) K/uL Immature Gran # (Auto) (0.00-0.02) K/uL ESR 56 H (0-14) mm/hr PT 11.4 (9.0-12.0) Seconds INR 1.1 (0.9-1.1) APTT 25.6 (21.0-31.0) Seconds PTT Ratio 0.9 Sodium 135 L (136-145) mmol/L Potassium 3.8 (3.5-5.1) mmol/L Chloride 100 (98-107) mmol/L Carbon Dioxide 27 (21-32) mmol/L Anion Gap 7.0 (3-11) BUN 14 (7-18) mg/dl Creatinine 1.06 (0.6-1.4) mg/dl Est Cr Clr Drug Dosing 83.4 ml/min Est GFR ( Amer) 89.2 Est GFR (Non-Af Amer) 77.0 BUN/Creatinine Ratio 13.6 (10-20) Glucose 110 H (70-99) mg/dl Lactate (0.4-2.0) mmol/L Uric Acid 2.1 L (2.6-7.2) mg/dl Calcium 9.7 (8.5-10.1) mg/dl Magnesium 2.1 (1.8-2.4) mg/dl Ferritin 1155.3 H (8-388) ng/ml Total Bilirubin 0.9 (0.2-1) mg/dl AST 14 L (15-37) U/L ALT 27 (12-78) U/L Alkaline Phosphatase 68 (45-117) U/L Lactate Dehydrogenase (87-241) U/L Total Creatine Kinase 45 (39-308) U/L CK-MB (CK-2) < 1.0 (0.5-3.6) ng/ml CK/CKMB % Calc TNP Troponin I < 0.015 (0-0.045) ng/ml C-Reactive Protein 8.04 H (0-0.29) mg/dl Total Protein 8.2 (6.4-8.2) gm/dl Albumin 3.2 L (3.4-5.0) gm/dl Globulin 5.0 H (2.5-4.0) gm/dl Albumin/Globulin Ratio 0.6 L (0.9-2) Procalcitonin (0-0.5) ng/ml Urine Color Urine Appearance (Clear) Urine pH (4.5-7.5) Ur Specific [place] (1.000-1.030) Urine Protein (Negative) Urine Glucose (UA) (Negative) Urine Ketones (Negative) Urine Blood (Negative) Urine Nitrite (Negative) Urine Bilirubin (Negative) Urine Urobilinogen (Negative) Ur Leukocyte Esterase (Negative) COVID-19 Eval Order COVID-19 PCR (Negative) 07/09/20 07/09/20 07/09/20 Range/Units 19:33 19:33 19:33 WBC (4.8-10.8) K/uL RBC (4.7-6.1) M/uL Hgb (14.0-18.0) g/dL Hct (42-52) % MCV (80-100) fL MCH (25-34) pg MCHC (32-36) g/dL RDW Std Deviation (36.4-46.3) fL RDW Coeff of Yi (11.5-14.5) % Plt Count (130-400) K/uL MPV (7.4-10.4) fL Immature Gran % (Auto) % Neut % (Auto) % Lymph % (Auto) % [place] % (Auto) % Eos % (Auto) % Baso % (Auto) % Neut # (Auto) (1.4-6.5) K/uL Lymph # (Auto) (1.2-3.4) K/uL [place] # (Auto) (0.11-0.59) K/uL Eos # (Auto) (0-0.5) K/uL Baso # (Auto) (0-0.2) K/uL Immature Gran # (Auto) (0.00-0.02) K/uL ESR (0-14) mm/hr PT (9.0-12.0) Seconds INR (0.9-1.1) APTT (21.0-31.0) Seconds PTT Ratio Sodium (136-145) mmol/L Potassium (3.5-5.1) mmol/L Chloride (98-107) mmol/L Carbon Dioxide (21-32) mmol/L Anion Gap (3-11) BUN (7-18) mg/dl Creatinine (0.6-1.4) mg/dl Est Cr Clr Drug Dosing ml/min Est GFR ( Amer) Est GFR (Non-Af Amer) BUN/Creatinine Ratio (10-20) Glucose (70-99) mg/dl Lactate 1.6 (0.4-2.0) mmol/L Uric Acid (2.6-7.2) mg/dl Calcium (8.5-10.1) mg/dl Magnesium (1.8-2.4) mg/dl Ferritin (8-388) ng/ml Total Bilirubin (0.2-1) mg/dl AST (15-37) U/L ALT (12-78) U/L Alkaline Phosphatase (45-117) U/L Lactate Dehydrogenase 190 (87-241) U/L Total Creatine Kinase (39-308) U/L CK-MB (CK-2) (0.5-3.6) ng/ml CK/CKMB % Calc Troponin I (0-0.045) ng/ml C-Reactive Protein (0-0.29) mg/dl Total Protein (6.4-8.2) gm/dl Albumin (3.4-5.0) gm/dl Globulin (2.5-4.0) gm/dl Albumin/Globulin Ratio (0.9-2) Procalcitonin 0.07 (0-0.5) ng/ml Urine Color Urine Appearance (Clear) Urine pH (4.5-7.5) Ur Specific [place] (1.000-1.030) Urine Protein (Negative) Urine Glucose (UA) (Negative) Urine Ketones (Negative) Urine Blood (Negative) Urine Nitrite (Negative) Urine Bilirubin (Negative) Urine Urobilinogen (Negative) Ur Leukocyte Esterase (Negative) COVID-19 Eval Order COVID-19 PCR (Negative) 07/09/20 Range/Units 21:33 WBC (4.8-10.8) K/uL RBC (4.7-6.1) M/uL Hgb (14.0-18.0) g/dL Hct (42-52) % MCV (80-100) fL MCH (25-34) pg MCHC (32-36) g/dL RDW Std Deviation (36.4-46.3) fL RDW Coeff of Yi (11.5-14.5) % Plt Count (130-400) K/uL MPV (7.4-10.4) fL Immature Gran % (Auto) % Neut % (Auto) % Lymph % (Auto) % [place] % (Auto) % Eos % (Auto) % Baso % (Auto) % Neut # (Auto) (1.4-6.5) K/uL Lymph # (Auto) (1.2-3.4) K/uL [place] # (Auto) (0.11-0.59) K/uL Eos # (Auto) (0-0.5) K/uL Baso # (Auto) (0-0.2) K/uL Immature Gran # (Auto) (0.00-0.02) K/uL ESR (0-14) mm/hr PT (9.0-12.0) Seconds INR (0.9-1.1) APTT (21.0-31.0) Seconds PTT Ratio Sodium (136-145) mmol/L Potassium (3.5-5.1) mmol/L Chloride (98-107) mmol/L Carbon Dioxide (21-32) mmol/L Anion Gap (3-11) BUN (7-18) mg/dl Creatinine (0.6-1.4) mg/dl Est Cr Clr Drug Dosing ml/min Est GFR ( Amer) Est GFR (Non-Af Amer) BUN/Creatinine Ratio (10-20) Glucose (70-99) mg/dl Lactate (0.4-2.0) mmol/L Uric Acid (2.6-7.2) mg/dl Calcium (8.5-10.1) mg/dl Magnesium (1.8-2.4) mg/dl Ferritin (8-388) ng/ml Total Bilirubin (0.2-1) mg/dl AST (15-37) U/L ALT (12-78) U/L Alkaline Phosphatase (45-117) U/L Lactate Dehydrogenase (87-241) U/L Total Creatine Kinase (39-308) U/L CK-MB (CK-2) (0.5-3.6) ng/ml CK/CKMB % Calc Troponin I (0-0.045) ng/ml C-Reactive Protein (0-0.29) mg/dl Total Protein (6.4-8.2) gm/dl Albumin (3.4-5.0) gm/dl Globulin (2.5-4.0) gm/dl Albumin/Globulin Ratio (0.9-2) Procalcitonin (0-0.5) ng/ml Urine Color Yellow Urine Appearance Clear (Clear) Urine pH 6.0 (4.5-7.5) Ur Specific [place] 1.014 (1.000-1.030) Urine Protein Negative (Negative) Urine Glucose (UA) Negative (Negative) Urine Ketones Negative (Negative) Urine Blood Negative (Negative) Urine Nitrite Negative (Negative) Urine Bilirubin Negative (Negative) Urine Urobilinogen Negative (Negative) Ur Leukocyte Esterase Negative (Negative) COVID-19 Eval Order COVID-19 PCR (Negative) Imaging Data Radiologist's Impression: [facility], [place] [phone] XRay Report Patient: IVANA PUGHAdmit Date: 07/09/20 MR#: [id number]: 1452 AD[address] SMITH Acct ID:[id number]: [facility] Zip: [place] [address] Age: 60Location: ED Sex: MRoom/Bed: Att Phy:Diagnosis: ANKLE PAIN Erika Phy: Js Sarabia M.D.Service Date: 07/09/20 [facility] Phy:Interpreting Phy: Jono Maldonado MD Admit Phy: Ordering Phy: Akash Gasca MD cc: ~ XR chest 1V portable HISTORY: SEPSIS COMPARISON: Chest 12/27/2016. FINDINGS: The lungs are clear. Cardiac silhouette is normal in size. No pleural effusions. No pneumothorax. IMPRESSION: No acute process. ACT 112: Negative or not required by law. Electronically signed by: Jono Maldonado M.D. 07/09/2020 8:56 PM Dictated: 07/09/202054 Transcribed: 07/09/202054 ECG Data Attestation: I personally reviewed and interpreted this ECG as follows: Indication: + weakness Rate (beats per minute): 78 Rhythm: + normal sinus ECG Rupert: + Normal ECG ST segments: + T-wave inversions (Inferior); no ST depression and no ST elevation ECG Findings: + PACs Comparison ECG Date: no prior available MDM Narrative Patient was seen and evaluated as above in room [facility]. Review was performed of nursing notes and vital signs. I did review pertinent previous visits and patient history. After obtaining a thorough history and physical examination the above work up was performed. This is a 60-year-old male who presents emergency department febrile tachycardic and hypotensive. Based on this a sepsis alert was immediately initiated. The patient appears to have bilateral cellulitis. He does have an elevation in his white blood cell count. He was started on broad-spectrum antibiotics and given 30 mL's per kilogram of fluid. I did discuss the case with the hospitalist service who did agree to meet the patient. While in the department, I personally reevaluated the patient several times and each time the patient was found to be resting comfortably. The patient was educated upon management, educated upon todays findings/results, educated upon importance of follow up from today's visit, educated upon symptoms in which to return, had questions answered prior to discharge, verbalized understanding, and was discharged home in good condition. An order was placed for continuous cardiac monitoring. The monitor shows a rate of 80 with Normal Sinus rhythm. The patient was evaluated during the global COVID-19 pandemic, and that diagnosis was suspected/considered upon their initial presentation. Their evaluation, treatment and testing was consistent with current guidelines for patients who present with complaints or symptoms that may be related to COVID- 19. Impression & Plan Sepsis Discharge Plan Visit Data Chief Complaint: Illness Stated Complaint: ANKLE PAIN ED Provider: Akash Gasca Discharge Problem: Sepsis Patient Disposition: Admitted As Inpatient Discharge Instructions Interventions: ED Discharge Assessment Last Done: 07/09/20 22:55 Discharge Problem: Sepsis Qualifiers: Sepsis type: sepsis due to unspecified organism Sepsis acute organ dysfunction status: unspecified Qualified Code(s): A41.9 - Sepsis, unspecified organism
[2020-07-10] MEDS: methylPREDNISolone 40 MG in SYRINGE 0 ML IV SCH ×2 (04:05→15:22)
[2020-07-10 06:11] LABS: Basophils # (auto) 0.01 K/uL (0-0.2); Basophils % (auto) 0.2 %; Eosinophils # (auto) 0.08 K/uL (0-0.5); Eosinophils % (auto) 1.4 %; Immature Granulocytes # (auto) 0.01 K/uL (0.00-0.02); Immature Granulocytes % (auto) 0.2 %; Lymphocytes # (auto) 0.95 K/uL (1.2-3.4); Lymphocytes % (auto) 16.1 %; Mean Corpuscular Hemoglobin 31.2 pg (25-34); Mean Corpuscular Hgb Conc 34.3 g/dL (32-36); Mean Corpuscular Volume 90.9 fL (80-100); Mean Platelet Volume 10.2 fL (7.4-10.4); Monocytes # (auto) 0.44 K/uL (0.11-0.59); Monocytes % (auto) 7.5 %; Neutrophils % (auto) 74.6 %; Platelet Count 268 K/uL (130-400); RDW Coefficient of Variation 12.4 % (11.5-14.5); RDW Standard Deviation 41.4 fL (36.4-46.3); Red Blood Count 3.85 M/uL (4.7-6.1); White Blood Count 5.89 K/uL (4.8-10.8)
[2020-07-10 06:52] LABS: Albumin Globulin Ratio 0.6 (0.9-2); Albumin Level 2.4 gm/dl (3.4-5.0); BUN Creatinine Ratio 15.4 (10-20); Bilirubin,Total 0.8 mg/dl (0.2-1); Calcium 8.3 mg/dl (8.5-10.1); Est GFR (African American) 113.5; Globulin 4.1 gm/dl (2.5-4.0); Magnesium 2.1 mg/dl (1.8-2.4); Potassium 4.5 mmol/L (3.5-5.1); Total Protein 6.5 gm/dl (6.4-8.2)
[2020-07-10] MEDS: CHOLECALCIFEROL 1,000 UNITS 25 MCG TAB PO SCH (07:53)
[2020-07-10] MEDS: COLCHICINE 0.6 MG TAB PO SCH ×2 (07:54→20:31)
[2020-07-10] MEDS ORDERED: ROSUVASTATIN CALCIUM 10 MG TAB PO SCH (09:00)
[2020-07-10] MEDS ORDERED: DAPTOmycin 325 MG in SYRINGE 0 ML IV SCH (20:00)
--- NOTE | 2020-07-10 22:16 | Electrocardiogram Report ---
Test Reason : Blood Pressure : / mmHG Vent. Rate : 078 BPM Atrial Rate : 078 BPM P-R Int : 126 ms QRS Dur : 084 ms QT Int : 398 ms P-R-T Axes : 049 119 -19 degrees QTc Int : 453 ms Sinus rhythm with Premature atrial complexes Left posterior fascicular block T wave abnormality, consider inferior ischemia Abnormal ECG No previous ECGs available Confirmed by José Manuel Shaver ([id number]) on 07/10/2020 10:16:31 PM Referred By: REFERRED SELF Confirmed By:José Manuel Shaver
--- NOTE | 2020-07-10 23:29 | Hospitalist Progress Note ---
Date of Service July 10, 2020 Assessment & Plan (1) Cellulitis of both lower extremities: Given fevers will continue to treat with antibiotic Continue daptomycin and Zosyn IV begun in the ED. Patient has been improving. will continue with current antibiotics. (2) Gouty arthritis of both ankles: Hold allopurinol during acute flare. Colchicine 0.6 mg p.o. twice daily Methylprednisolone 40 mg IV every 12 hours x2 doses, then convert to prednisone, due to severity of process. will maintain on methyprednisolone. (3) Hypertension: Hold losartan. (4) Hyperlipidemia: Continue rosuvastatin. (5) Gout: Hold allopurinol during acute flare Admission and Anticipated Discharge Date Admission Date: July 09, 2020 Subjective 60 yo male reports feeling significantly better today. He states the swelling and redness has improved since he has been here. Review of Systems Review of Systems: The patient denies chest pain, palpitations, shortness of breath, dyspnea on exertion, cough, sore throat, fevers, chills, sweats, nausea, vomiting, diarrhea , constipation, abdominal pain, pelvic pain, blood in urine or stool, dysuria, urinary frequency or urgency, lightheadedness, dizziness, headache, memory loss, loss of consciousness, abnormal bruising or bleeding, focal or generalized weakness, numbness or tingling in arms, generalized arthralgias or myalgias, back or neck pain, or night sweats. The review of systems is otherwise negative other than for that already noted above, and at least 10 systems have been reviewed. Physical Exam Physical Exam: The patient is awake, alert and oriented 3, well developed and well nourished, normocephalic and atraumatic, lying in bed and in no acute distress. HEENT--PERRL, EOMI, mucous membranes and oropharynx dry. Neck--supple. No JVD. No bruits. Thyroid normal, trachea midline, no adenopath y. Heart--normal S1 and S2. No murmurs, rubs or gallops. Lungs--clear bilaterally, no respiratory distress, no accessory muscle use. Abdomen--normal bowel sounds and soft. Nontender. Nondistended, no hernias or masses, no organomegaly. Extremities/Dermatologic--bilateral edema and bone swelling of the foot and ankle, left greater than right. Mild erythema and warmth left greater than right Neurologic--cranial nerves II through XII grossly intact. Rheumatologic--normal range of motion except for feet and ankles bilaterally Psychiatric--normal affect. Results & Data Results & Data ([facility]) Vital Signs (Past 12 Hours) Vital Signs Temp Pulse Pulse Resp BP Pulse Ox 07/10/20 19:42 36.4 C L 74 18 123/64 97 07/10/20 16:46 36.4 C L 71 18 133/71 95 07/10/20 15:45 69 07/10/20 11:40 36.5 C 71 16 132/73 95 PG Care Time/CCT Total # of Minutes Spent Total Time Spent with Patient: Total time spent is greater than 50% in coordination of care (as documented) at patient's floor/unit and/or counseling patient: Coding Level of Care Code 78064 Subseq Obs Care Lvl 3 Diagnoses Cellulitis of both lower extremities L03.115; L03.116 Gouty arthritis of both ankles M10.9 Hypertension I10 Hyperlipidemia E78.5 Gout M10.9
[2020-07-11] MEDS: LEVOFLOXACIN/D5W 500 MG/100 ML BAG IV SCH (01:25)
[2020-07-11] MEDS: PIPERACILLIN/TAZOBACTAM 3.375 GM in DEXTROSE 5% 100 ML IV SCH ×2 (01:25→08:17)
[2020-07-11] MEDS: methylPREDNISolone 40 MG in SYRINGE 0 ML IV SCH (02:20)
[2020-07-11] MEDS: NSS + 20MEQ KCL 20 MEQ/1,000 ML BAG IV SCH (05:48)
[2020-07-11 07:52] LABS: Hematocrit (blood only) 32.8 % (42-52); Hemoglobin 11.3 g/dL (14.0-18.0); Immature Granulocytes # (auto) 0.02 K/uL (0.00-0.02); Immature Granulocytes % (auto) 0.2 %; Lymphocytes # (auto) 1.04 K/uL (1.2-3.4); Lymphocytes % (auto) 8.7 %; Mean Corpuscular Hemoglobin 30.8 pg (25-34); Mean Corpuscular Hgb Conc 34.5 g/dL (32-36); Mean Corpuscular Volume 89.4 fL (80-100); Monocytes # (auto) 0.26 K/uL (0.11-0.59); Monocytes % (auto) 2.2 %; Neutrophils # (auto) 10.61 K/uL (1.4-6.5); Neutrophils % (auto) 88.9 %; Platelet Count 340 K/uL (130-400); RDW Standard Deviation 38.9 fL (36.4-46.3); Red Blood Count 3.67 M/uL (4.7-6.1); White Blood Count 11.93 K/uL (4.8-10.8)
[2020-07-11] MEDS: COLCHICINE 0.6 MG TAB PO SCH (08:17)
[2020-07-11] MEDS: CHOLECALCIFEROL 1,000 UNITS 25 MCG TAB PO SCH (08:17)
[2020-07-11 08:18] LABS: Albumin Level 2.6 gm/dl (3.4-5.0); BUN Creatinine Ratio 20.7 (10-20); Calcium 9.3 mg/dl (8.5-10.1); Creatinine Clr Calc Pharmacy 101.8 ml/min; Est GFR (African American) 103.2; Magnesium 2.3 mg/dl (1.8-2.4); Potassium 4.2 mmol/L (3.5-5.1)
[2020-07-11 08:21] LABS: Albumin Globulin Ratio 0.6 (0.9-2); Bilirubin,Total 0.4 mg/dl (0.2-1); Globulin 4.2 gm/dl (2.5-4.0); Total Protein 6.8 gm/dl (6.4-8.2)
--- NOTE | 2020-07-19 22:31 | Discharge Summary ---
Date of Service July 11, 2020 Admission HPI Per Admitting Provider The patient is a 60-year-old male with a past medical history including gout, hypertension and hyperlipidemia, who presents with the symptoms as noted above. He denies any recent travels or sick exposures, including COVID. He denies any recent trauma. He denies any recent gout flareups. He does report eating shrimp last evening, and is not restrictive related to protein intake including meats. Principal Diagnosis cellulitis Discharge Exam The patient is awake, alert and oriented 3, well developed and well nourished, normocephalic and atraumatic, lying in bed and in no acute distress. HEENT--PERRL, EOMI, mucous membranes and oropharynx dry. Neck--supple. No JVD. No bruits. Thyroid normal, trachea midline, no adenopathy. Heart--normal S1 and S2. No murmurs, rubs or gallops. Lungs--clear bilaterally, no respiratory distress, no accessory muscle use. Abdomen--normal bowel sounds and soft. Nontender. Nondistended, no hernias or masses, no organomegaly. Extremities/Dermatologic--bilateral edema and bone swelling of the foot and ankle, left greater than right. Mild erythema and warmth left greater than right Neurologic--cranial nerves II through XII grossly intact. Rheumatologic--normal range of motion except for feet and ankles bilaterally Psychiatric--normal affect. Discharge Data Allergies Allergy/AdvReac Type Severity Reaction Status Date / Time Bactrim Allergy Unknown rash Unverified 12/27/16 22:01 cephalexin Allergy Unknown rash Unverified 07/09/20 21:11 sulfamethoxazole Allergy Unknown rash Unverified 07/09/20 21:11 trimethoprim Allergy Unknown rash Unverified 07/09/20 21:11 Consultations 07/09/20 20:44 ED Decision to Admit Stat 07/10/20 00:04 Consult Case Management - Discharge Planning Routine Hospital Course (1) Cellulitis of both lower extremities: Given fevers will continue to treat with antibiotic Continue daptomycin and Zosyn IV begun in the ED. Patient has been improving. will discharge on amoxicillin and doxycycline. (2) Gouty arthritis of both ankles: Hold allopurinol during acute flare. Colchicine 0.6 mg p.o. twice daily Methylprednisolone 40 mg IV every 12 hours x2 doses, then convert to prednisone, due to severity of process. will maintain on methyprednisolone. (3) Hypertension: Hold losartan. (4) Hyperlipidemia: Continue rosuvastatin. (5) Gout: Hold allopurinol during acute flare Total Time Total Time Spent Total Time Spent (In Minutes): 32 Discharge Plan Discharge Items Patient Disposition: Home - Self-Care Reason For Visit: B/L LE CELLULITIS, GOUT FLARE Discharge Diagnosis: BL cellulitis, gout flaire Activity: Resume your previous activity Non-emergency contact: Primary Care Provider Call non-emergency contact if: you have any medication questions Follow-up/Referrals: Js Sarabia [Primary Care Provider] - Diet: Regular Addtl Attending Provider Instructions: Continue antibiotics for 5 days Pending Studies at Discharge: No Stand-Alone Forms: Just Soles, Smoking Cessation Medications and DC Order Prescriptions: New prednisone 10 mg tablet 10 mg PO DAILY Qty: 20 RF: 0 amoxicillin 875 mg tablet 875 mg PO BID Qty: 10 RF: 0 doxycycline hyclate 100 mg tablet 100 mg PO BID Qty: 10 RF: 0 Continued allopurinol 300 mg Tablet 300 mg PO DAILY RF: 0 losartan 100 mg Tablet 100 mg PO DAILY RF: 0 rosuvastatin 10 mg Tablet 10 mg PO DAILY RF: 0 cholecalciferol (vitamin D3) [Vitamin D3] 25 mcg (1,000 unit) Tablet 25 mcg PO DAILY RF: 0 Discharge Orders: Discharge Order (Routine); Ordered 07/11/20 Ordered By: Js Read Admission Data Admit Date/Time: 07/09/20 21:41 Attending Provider: Js Read Admit Provider: Thanh Weiner Primary Care Provider: Js Sarabia Other Providers: Thanh Weiner Other Interventions: Discharge Summary Assessment (RN) Last Done: 07/11/20 10:28 Coding Level of Care Code D/C Day Management >30 mins Diagnoses Cellulitis of both lower extremities L03.115; L03.116 Gouty arthritis of both ankles M10.9 Hypertension I10 Hyperlipidemia E78.5 Gout M10.9 Time Spent (min) 32
== END 2020-07-11 10:55 | disposition home or self-care (01) ==
LOC: ED 18:24 → 2W 18:24 → SUATTDRO 21:41 → 2W 22:55